=== PATIENT | male | born 1960 | race Caucasian/White ===

== ENCOUNTER 2019-04-21 13:39 | Inpatient (IN) ==
[2019-04-21 14:23] LABS: Basophils % 0.3 % (0.0-0.8); Eosinophils # 0.1 10*3/uL (0.0-0.87); Eosinophils % 0.4 % (0.00-10.9); Hematocrit 42.1 VOL% (42.0-52.0); Hemoglobin 14.2 GM/DL (14.0-18.0); Immature Granulocytes % 1.5 %; Immature Granulocytes Absolute 0.18 #; Lymphocytes % 8.9 % (21.2-54.2); Mean Corpuscular HGB Conc 33.7 GM/DL (32-36); Mean Corpuscular Volume 90.5 FL (87-102); Mean Platelet Volume 9.5 FL (9.6-12.0); Monocytes % 8.3 % (1.7-12.7); Neutrophils % 80.6 % (38.7-73.9); Platelet Count 191 T/CUMM (130-400); Red Blood Count 4.65 MC/CUMM (3.8-5.5); Red Cell Distribution Width 13.2 % (9.3-17.3); White Blood Count 11.7 T/CUMM (4-12)
[2019-04-21] MEDS ORDERED: SODIUM CHLORIDE 0.9% 1,000 ML IV STA ×2 (14:37→16:54)
[2019-04-21] MEDS ORDERED: PROMETHAZINE 25 MG/1 ML VIAL IM STA (14:38)
[2019-04-21 14:42] LABS: Albumin 3.5 G/DL (3.4-5.0); Bilirubin,Total 1.8 MG/DL (0.2-1.0); Calcium 9.8 MG/DL (8.5-10.1); Osmolality,Calculated 288.9 MOS/KG (273-304); Total Protein 7.5 G/DL (6.4-8.3)
[2019-04-21 16:05] LABS: Apearance,Urine CLEAR (Clear); Bilirubin,Urine Negative (Negative); Blood, Urine Small mg/dL (Negative); Glucose,Urine (UA) >=500 mg/dL (Negative); Hyaline Casts,Urine 33 /LPF (0-3); Ketones,Urine Negative (Negative); Mucus,Urine Occasional /LPF (Occasional); Nitrite,Urine Negative (Negative); Protein,Urine Negative; RBC,Urine 3 /HPF (0-4); Squamous Epithelial Cell,Urine Occasional /HPF (0-10); Urine Color Yellow (Yellow); Urine Specific Gravity 1.011 (1.001-1.035); Urine Urobilinogen < 2.0 EU/DL (0.2-1.0); WBC,Urine 3 /HPF (0-6)
[2019-04-21] MEDS ORDERED: DEXTROSE 10% 250 ML BAG IV PRN (16:49)
[2019-04-21] MEDS ORDERED: GLUCAGON 1 MG VIAL IM PRN (16:49)
[2019-04-21] MEDS ORDERED: ACETAMINOPHEN 325 MG TABLET PO PRN (16:49)
[2019-04-21] MEDS ORDERED: cloNIDine 0.1 MG TABLET PO PRN (17:01)
[2019-04-21] MEDS: ENOXAPARIN 30 MG/0.3 ML SYRINGE SUBCUT SCH (18:30)
[2019-04-21] MEDS: SODIUM CHLORIDE 0.9% 1,000 ML IV SCH (18:30)
[2019-04-21] MEDS: SODIUM PHOSPHATE ENEMA 133 ML BOTTLE RECTAL ONE ×2 (18:30→19:18)
[2019-04-21 18:58] LABS: CKMB % 4.2 %
[2019-04-21 18:59] LABS: Troponin I 0.275 NG/ML (0.00-0.045)
[2019-04-21 20:57] LABS: CKMB % 4.2 %
[2019-04-21 20:58] LABS: Troponin I 0.288 NG/ML (0.00-0.045)
[2019-04-21] MEDS: INSULIN LISPRO 100 UNIT/ML SUBCUT SCH (21:04)
[2019-04-21] MEDS: PENTOXIFYLLINE 400 MG TABLET PO SCH (21:05)
[2019-04-21] MEDS: GABAPENTIN 300 MG CAPSULE PO SCH (21:05)
[2019-04-22 01:07] LABS: Basophils % 0.3 % (0.0-0.8); Eosinophils # 0.3 10*3/uL (0.0-0.87); Eosinophils % 1.9 % (0.00-10.9); Hematocrit 38.4 VOL% (42.0-52.0); Hemoglobin 12.8 GM/DL (14.0-18.0); Immature Granulocytes Absolute 0.27 #; Lymphocytes # 2.2 10*3/uL (1.4-4.0); Lymphocytes % 16.6 % (21.2-54.2); Mean Corpuscular HGB Conc 33.3 GM/DL (32-36); Mean Corpuscular Volume 92.3 FL (87-102); Mean Platelet Volume 9.4 FL (9.6-12.0); Monocytes % 13.7 % (1.7-12.7); Neutrophils % 65.5 % (38.7-73.9); Platelet Count 177 T/CUMM (130-400); Red Blood Count 4.16 MC/CUMM (3.8-5.5); Red Cell Distribution Width 13.4 % (9.3-17.3); White Blood Count 13.3 T/CUMM (4-12)
[2019-04-22 01:43] LABS: Albumin 2.9 G/DL (3.4-5.0); Bilirubin,Total 1.4 MG/DL (0.2-1.0); Calcium 8.7 MG/DL (8.5-10.1); Osmolality,Calculated 284.2 MOS/KG (273-304); Thyroid Stimulating Hormone 0.507 uIU/ml (0.358-3.74); Total Protein 6.4 G/DL (6.4-8.3)
[2019-04-22] MEDS: POTASSIUM CHLORIDE 20 MEQ TABLET PO PRN ×4 (02:55→08:48)
[2019-04-22] MEDS: SODIUM CHLORIDE 0.9% 1,000 ML IV SCH ×2 (04:56→13:46)
[2019-04-22] MEDS: SIMVASTATIN 40 MG TABLET PO SCH (08:48)
[2019-04-22] MEDS: INSULIN LISPRO 100 UNIT/ML SUBCUT SCH ×4 (08:48→21:21)
[2019-04-22] MEDS: POLYETHYLENE GLYCOL POWDER 17 GM PACK PO SCH (08:48)
[2019-04-22] MEDS: PENTOXIFYLLINE 400 MG TABLET PO SCH ×2 (08:48→21:21)
[2019-04-22] MEDS: GABAPENTIN 300 MG CAPSULE PO SCH ×2 (08:48→21:21)
[2019-04-22] MEDS: PANTOPRAZOLE 40 MG TABLET PO SCH (08:48)
[2019-04-22] MEDS: ONDANSETRON 4 MG/2 ML VIAL IV PRN (13:50)
[2019-04-22] MEDS: ENOXAPARIN 30 MG/0.3 ML SYRINGE SUBCUT SCH (17:25)
[2019-04-23] MEDS: SODIUM CHLORIDE 0.9% 1,000 ML IV SCH ×3 (00:05→19:00)
[2019-04-23 04:50] LABS: Basophils # 0.1 10*3/uL (0.0-0.2); Basophils % 0.7 % (0.0-0.8); Eosinophils # 0.3 10*3/uL (0.0-0.87); Eosinophils % 3.2 % (0.00-10.9); Hematocrit 34.3 VOL% (42.0-52.0); Hemoglobin 11.2 GM/DL (14.0-18.0); Immature Granulocytes % 1.8 %; Immature Granulocytes Absolute 0.18 #; Lymphocytes # 2.5 10*3/uL (1.4-4.0); Lymphocytes % 25.1 % (21.2-54.2); Mean Corpuscular HGB Conc 32.7 GM/DL (32-36); Monocytes % 10.7 % (1.7-12.7); Neutrophils % 58.5 % (38.7-73.9); Platelet Count 148 T/CUMM (130-400); Red Blood Count 3.65 MC/CUMM (3.8-5.5); Red Cell Distribution Width 13.5 % (9.3-17.3); White Blood Count 10.1 T/CUMM (4-12)
[2019-04-23 05:17] LABS: Albumin 2.5 G/DL (3.4-5.0); Bilirubin,Total 1.1 MG/DL (0.2-1.0); Calcium 8.4 MG/DL (8.5-10.1); Osmolality,Calculated 282.1 MOS/KG (273-304); Total Protein 5.3 G/DL (6.4-8.3)
[2019-04-23] MEDS: INSULIN LISPRO 100 UNIT/ML SUBCUT SCH ×4 (09:41→20:53)
[2019-04-23] MEDS: PANTOPRAZOLE 40 MG TABLET PO SCH ×2 (09:42→20:53)
[2019-04-23] MEDS: POLYETHYLENE GLYCOL POWDER 17 GM PACK PO SCH ×2 (09:42→09:45)
[2019-04-23] MEDS: PENTOXIFYLLINE 400 MG TABLET PO SCH ×2 (09:42→20:52)
[2019-04-23] MEDS: ASPIRIN EC 81 MG TABLET PO SCH (09:42)
[2019-04-23] MEDS: GABAPENTIN 300 MG CAPSULE PO SCH ×2 (09:42→20:53)
[2019-04-23] MEDS: DOCUSATE SODIUM 100 MG CAPSULE PO SCH ×2 (09:42→20:53)
[2019-04-23] MEDS: SIMVASTATIN 40 MG TABLET PO SCH (09:49)
[2019-04-23] MEDS ORDERED: ALUM/MAG/SIMETH/LIDO VISC 1:1 30 ML BOTTLE PO ONE (11:00)
[2019-04-23] MEDS: ENOXAPARIN 30 MG/0.3 ML SYRINGE SUBCUT SCH (18:59)
[2019-04-23] MEDS: POTASSIUM CHLORIDE 20 MEQ TABLET PO PRN ×2 (20:53→22:41)
[2019-04-23] MEDS: INSULIN GLARGINE 100 UNIT/ML SUBCUT SCH (20:53)
[2019-04-24] MEDS: SODIUM CHLORIDE 0.9% 1,000 ML IV SCH ×2 (04:02→16:35)
[2019-04-24 04:53] LABS: Basophils # 0.1 10*3/uL (0.0-0.2); Basophils % 0.7 % (0.0-0.8); Eosinophils # 0.2 10*3/uL (0.0-0.87); Eosinophils % 2.2 % (0.00-10.9); Hemoglobin 10.9 GM/DL (14.0-18.0); Immature Granulocytes % 1.4 %; Immature Granulocytes Absolute 0.15 #; Lymphocytes # 1.9 10*3/uL (1.4-4.0); Lymphocytes % 18.2 % (21.2-54.2); Mean Platelet Volume 9.9 FL (9.6-12.0); Monocytes % 9.3 % (1.7-12.7); Neutrophils % 68.2 % (38.7-73.9); Platelet Count 140 T/CUMM (130-400); Red Blood Count 3.55 MC/CUMM (3.8-5.5); Red Cell Distribution Width 13.5 % (9.3-17.3); White Blood Count 10.6 T/CUMM (4-12)
[2019-04-24 05:38] LABS: Calcium 8.3 MG/DL (8.5-10.1); Osmolality,Calculated 277.2 MOS/KG (273-304)
[2019-04-24] MEDS: INSULIN LISPRO 100 UNIT/ML SUBCUT SCH ×4 (07:18→20:08)
[2019-04-24] MEDS: ASPIRIN EC 81 MG TABLET PO SCH (09:11)
[2019-04-24] MEDS: DOCUSATE SODIUM 100 MG CAPSULE PO SCH ×2 (09:11→21:04)
[2019-04-24] MEDS: PANTOPRAZOLE 40 MG TABLET PO SCH ×2 (09:11→21:04)
[2019-04-24] MEDS: PENTOXIFYLLINE 400 MG TABLET PO SCH ×2 (09:11→21:04)
[2019-04-24] MEDS: GABAPENTIN 300 MG CAPSULE PO SCH ×2 (09:11→21:05)
[2019-04-24] MEDS: POLYETHYLENE GLYCOL POWDER 17 GM PACK PO SCH (09:11)
[2019-04-24] MEDS: FLUCONAZOLE 100 MG TABLET PO SCH (09:11)
[2019-04-24] MEDS: SIMVASTATIN 40 MG TABLET PO SCH (09:11)
[2019-04-24] MEDS ORDERED: PROPOFOL 200 MG/20 ML VIAL IV ONE (12:34)
[2019-04-24] MEDS ORDERED: LIDOCAINE 2% 5 ML VIAL ONE (12:34)
[2019-04-24] MEDS: ENOXAPARIN 30 MG/0.3 ML SYRINGE SUBCUT SCH (16:35)
[2019-04-24] MEDS: ONDANSETRON 4 MG/2 ML VIAL IV PRN (16:40)
[2019-04-24] MEDS: INSULIN GLARGINE 100 UNIT/ML SUBCUT SCH (21:05)
[2019-04-25] MEDS: SODIUM CHLORIDE 0.9% 1,000 ML IV SCH (02:47)
[2019-04-25 05:02] LABS: Basophils # 0.1 10*3/uL (0.0-0.2); Basophils % 0.7 % (0.0-0.8); Eosinophils # 0.2 10*3/uL (0.0-0.87); Hematocrit 31.5 VOL% (42.0-52.0); Hemoglobin 10.5 GM/DL (14.0-18.0); Immature Granulocytes % 1.2 %; Immature Granulocytes Absolute 0.09 #; Lymphocytes # 1.7 10*3/uL (1.4-4.0); Lymphocytes % 22.9 % (21.2-54.2); Mean Corpuscular HGB Conc 33.3 GM/DL (32-36); Mean Corpuscular Volume 92.9 FL (87-102); Mean Platelet Volume 10.3 FL (9.6-12.0); Monocytes % 8.8 % (1.7-12.7); Neutrophils % 63.4 % (38.7-73.9); Platelet Count 137 T/CUMM (130-400); Red Blood Count 3.39 MC/CUMM (3.8-5.5); Red Cell Distribution Width 13.8 % (9.3-17.3); White Blood Count 7.3 T/CUMM (4-12)
[2019-04-25 05:31] LABS: Osmolality,Calculated 281.7 MOS/KG (273-304)
[2019-04-25 08:16] VITALS: BP 97/46
[2019-04-25] MEDS: INSULIN LISPRO 100 UNIT/ML SUBCUT SCH (08:18)
[2019-04-25] MEDS: ASPIRIN EC 81 MG TABLET PO SCH (08:28)
[2019-04-25] MEDS: DOCUSATE SODIUM 100 MG CAPSULE PO SCH (08:28)
[2019-04-25] MEDS: GABAPENTIN 300 MG CAPSULE PO SCH (08:28)
[2019-04-25] MEDS: PANTOPRAZOLE 40 MG TABLET PO SCH (08:30)
[2019-04-25] MEDS: PENTOXIFYLLINE 400 MG TABLET PO SCH (08:30)
[2019-04-25] MEDS: SIMVASTATIN 40 MG TABLET PO SCH (08:30)
[2019-04-25] MEDS: FLUCONAZOLE 100 MG TABLET PO SCH (08:30)
[2019-04-25] MEDS: POLYETHYLENE GLYCOL POWDER 17 GM PACK PO SCH (11:07)
== END 2019-04-25 11:14 | disposition home or self-care (01) | DRG 682 ==
LOC: EDBD → EDUNIT# → N.ED 13:39 → N.EDINP 15:54 → N.4E 17:56
PROVIDERS: ADMIT Internal Medicine; ATTEND Internal Medicine